=== PATIENT | male | born 1955 | race Caucasian/White ===

== ENCOUNTER 2018-01-13 14:07 | Emergency (ER) | payer MEDICAID ==
[~2018-01-13] VITALS: Ht 172.7 cm; Wt 102.1 kg
[~2018-01-13 14:07] MED LIST: AMOXICILLIN500 M2 PO; BENADRYL25 MG PO; CLARITIN10 MG PO; EPIPEN 2-PAK1 MG/ML MR; FLEXERIL10 MG PO; MEDROL DOSEPAK4 MG PO; NAPROSYN500 MG PO; NO DAILY MEDS; PREDNICOT20 MG PO; PREDNISONE20 MG PO; ZITHROMAX Z PA250 MG PO
== END 2018-01-13 16:07 | disposition home or self-care (01) ==
LOC: ED 14:07
DX: T78.1XXA Other adverse food reactions, not elsewhere classified, initial encounter (principal); X58.XXXA Exposure to other specified factors, initial encounter

== ENCOUNTER → 2018-01-26 | Outpatient (CLI) | payer MEDICAID | END | disposition home or self-care (01) | LOC: RESCLI 02:23 | DX: J44.9 Chronic obstructive pulmonary disease, unspecified (principal); H53.2 Diplopia; I10 Essential (primary) hypertension; R73.03 Prediabetes; K21.9 Gastro-esophageal reflux disease without esophagitis; T78.3XXD Angioneurotic edema, subsequent encounter; Z72.0 Tobacco use; Z71.6 Tobacco abuse counseling; G89.21 Chronic pain due to trauma ==

== ENCOUNTER → 2018-02-21 | Outpatient (CLI) | payer MEDICAID | END | disposition home or self-care (01) | LOC: RESCLI 02:59 | DX: I10 Essential (primary) hypertension (principal); J44.9 Chronic obstructive pulmonary disease, unspecified; R73.03 Prediabetes; T78.3XXD Angioneurotic edema, subsequent encounter; G89.21 Chronic pain due to trauma; Z72.0 Tobacco use ==

== ENCOUNTER 2018-03-31 10:25 | Emergency (ER) | payer OTHER ==
[~2018-03-31] VITALS: Ht 172.7 cm; Wt 113.4 kg
[2018-03-31] MEDS ORDERED: PREDNISONE10 MG PO (11:41)
== END 2018-03-31 11:56 | disposition home or self-care (01) ==
LOC: ED 10:25
DX: R22.0 Localized swelling, mass and lump, head (principal); T78.40XA Allergy, unspecified, initial encounter; J45.909 Unspecified asthma, uncomplicated; Y92.9 Unspecified place or not applicable

== ENCOUNTER → 2018-04-05 | Outpatient (CLI) | payer OTHER ==
[~2018-04-05] MED LIST changes: +PREDNISONE10 MG PO
== END | disposition home or self-care (01) ==
LOC: RESCLI 01:56
DX: I10 Essential (primary) hypertension (principal); H53.2 Diplopia; J44.9 Chronic obstructive pulmonary disease, unspecified; G89.21 Chronic pain due to trauma; R73.03 Prediabetes; K21.9 Gastro-esophageal reflux disease without esophagitis; E55.9 Vitamin D deficiency, unspecified; K43.9 Ventral hernia without obstruction or gangrene; Z71.6 Tobacco abuse counseling; Z72.0 Tobacco use

== ENCOUNTER → 2018-07-05 | Outpatient (CLI) | payer OTHER | END | disposition home or self-care (01) | LOC: RESCLI 03:42 | DX: I10 Essential (primary) hypertension (principal); K21.9 Gastro-esophageal reflux disease without esophagitis; J44.9 Chronic obstructive pulmonary disease, unspecified; H53.2 Diplopia; E55.9 Vitamin D deficiency, unspecified; K43.9 Ventral hernia without obstruction or gangrene; E66.01 Morbid (severe) obesity due to excess calories; G89.21 Chronic pain due to trauma; R73.03 Prediabetes; Z72.0 Tobacco use; Z71.6 Tobacco abuse counseling ==

== ENCOUNTER → 2018-07-07 | Outpatient (CLI) | payer OTHER | END | disposition home or self-care (01) | LOC: D 10:54 | DX: E66.01 Morbid (severe) obesity due to excess calories (principal); J44.9 Chronic obstructive pulmonary disease, unspecified; K21.9 Gastro-esophageal reflux disease without esophagitis; Z72.0 Tobacco use; Z71.6 Tobacco abuse counseling ==

== ENCOUNTER 2019-08-19 20:37 | Emergency (ER) | payer OTHER ==
[~2019-08-19] VITALS: Ht 172.7 cm; Wt 121.1 kg
[~2019-08-19 20:37] MED LIST changes: +ASPIRIN ADULT L81 M1 PO; +BACLOFEN5 MG PO; +HYDROCHLOROTH12.5 M3 PO; +NAPROXEN550 MG PO; +OMEPRAZOLE40 MG PO; +VITAMIN D31000 UNI1 PO
[2019-08-19] MEDS ORDERED: BANOPHEN50 MG PO (22:44)
[2019-08-19] MEDS ORDERED: PREDNISONE10 MG PO (22:44)
== END 2019-08-19 23:42 | disposition home or self-care (01) ==
LOC: ED 20:37
DX: T78.3XXA Angioneurotic edema, initial encounter (principal); R22.0 Localized swelling, mass and lump, head; Z79.899 Other long term (current) drug therapy; Z79.82 Long term (current) use of aspirin; Y92.89 Other specified places as the place of occurrence of the external cause

== ENCOUNTER 2020-07-31 13:29 | Emergency (ER) | payer OTHER ==
[~2020-07-31] VITALS: Ht 180.3 cm; Wt 127.0 kg
[~2020-07-31 13:29] MED LIST changes: +BANOPHEN50 MG PO
[2020-07-31] MEDS ORDERED: DOXYCYCLINE100 M3 PO (13:58)
[2020-07-31] MEDS ORDERED: PREDNISONE10 MG PO (13:58)
[2020-07-31] MEDS ORDERED: PROVENTIL HFA6.7 GM INH (13:58)
== END 2020-07-31 14:36 | disposition home or self-care (01) ==
LOC: ED 13:29
DX: J44.1 Chronic obstructive pulmonary disease with (acute) exacerbation (principal); Z79.899 Other long term (current) drug therapy; Z79.82 Long term (current) use of aspirin

== ENCOUNTER 2020-08-25 13:57 | Inpatient (IN) | payer OTHER ==
[~2020-08-25] VITALS: Ht 172.7 cm; Wt 119.5 kg
[~2020-08-25 13:57] MED LIST changes: +DOXYCYCLINE100 M3 PO; +PROVENTIL HFA6.7 GM INH
[2020-08-25 14:04] VITALS: BP 155/111
[2020-08-25 14:44] LABS: BASO % 0.4 % (0.0-1.0); EOS # 0.5 10*3/uL (0.0-0.4); LYMPH # 1.2 10*3/uL (1.3-4.4); LYMPH % 17.5 % (27.0-41.0); MEAN CELL VOLUME 86.8 fl (80.0-94.0); MEAN CORPUSCULAR HGB 28.4 pg (27.0-31.0); MEAN CORPUSCULAR HGB CONC 32.7 g/dl (33.0-37.0); MONO # 0.8 10*3/uL (0.1-1.0); MONO % 12.3 % (3.0-9.0); NEUT # 4.2 10*3/uL (2.3-7.9); NEUT % 62.5 % (47.0-73.0); PLATELET COUNT AUTOMATED 209 10*3/uL (130-400); RED BLOOD COUNT 5.07 10*6/uL (4.50-5.90); RED CELL DISTRI WIDTH 13.1 % (0-14.5); WHITE BLOOD COUNT 6.8 10*3/uL (4.8-10.8)
[2020-08-25 15:00] LABS: ALBUMIN 3.7 gm/dl (3.1-4.5); ALKALINE PHOSPHATASE 83 U/L (45-117); BUN 15 mg/dl (7-24); CHLORIDE 110 mmol/L (98-107); CREATININE 1.03 mg/dL (0.70-1.30); POTASSIUM 3.7 mmol/L (3.5-5.1); SGOT/AST 19 IU/L (3-35); SGPT/ALT 31 U/L (12-78); SODIUM 140 mmol/L (136-145); TOTAL PROTEIN 7.3 gm/dL (6.4-8.2)
[2020-08-25 15:02] LABS: TROPONIN I < 0.015 ng/ml (<0.045)
[2020-08-25 16:30] VITALS: BP 146/80
[2020-08-25 16:43] VITALS: BP 144/77
[2020-08-25] MEDS ORDERED: BUDESONIDE-FO10.2 GM INH ×2 (17:11→17:17)
[2020-08-25 20:00] VITALS: BP 145/77
[2020-08-26] VITALS: BP 131/61
[2020-08-26 05:51] LABS: ALBUMIN 3.7 gm/dl (3.1-4.5); POTASSIUM 3.5 mmol/L (3.5-5.1); TOTAL PROTEIN 7.7 gm/dL (6.4-8.2)
[2020-08-26 05:58] LABS: CREATININE 1.46 mg/dL (0.70-1.30); FREE T4 1.01 ng/dl (0.76-1.46); THYROID STIM HORMONE (HS) 0.519 uIU/ml (0.358-4.75)
[2020-08-26 06:03] LABS: HEMATOCRIT 45.9 % (42.0-52.0); LYMPH # 0.4 10*3/uL (1.3-4.4); LYMPH % 5.8 % (27.0-41.0); MEAN CELL VOLUME 87.4 fl (80.0-94.0); MEAN CORPUSCULAR HGB 28.2 pg (27.0-31.0); MEAN CORPUSCULAR HGB CONC 32.2 g/dl (33.0-37.0); MEAN PLATELET VOLUME 12.2 fl (9.6-12.3); MONO # 0.3 10*3/uL (0.1-1.0); MONO % 4.1 % (3.0-9.0); NEUT # 6.5 10*3/uL (2.3-7.9); NEUT % 89.8 % (47.0-73.0); PLATELET COUNT AUTOMATED 257 10*3/uL (130-400); RED BLOOD COUNT 5.25 10*6/uL (4.50-5.90); WHITE BLOOD COUNT 7.3 10*3/uL (4.8-10.8)
[2020-08-26 08:00] VITALS: BP 138/57
[2020-08-26 12:00] VITALS: BP 142/67
[2020-08-26 16:00] VITALS: BP 137/69
[2020-08-26 20:00] VITALS: BP 122/60
[2020-08-27] VITALS: BP 119/62
[2020-08-27 06:46] LABS: BASO % 0.1 % (0.0-1.0); EOS % 0.1 % (1.0-4.0); HEMATOCRIT 42.7 % (42.0-52.0); LYMPH # 1.4 10*3/uL (1.3-4.4); LYMPH % 9.3 % (27.0-41.0); MEAN CELL VOLUME 87.7 fl (80.0-94.0); MEAN CORPUSCULAR HGB 28.3 pg (27.0-31.0); MEAN CORPUSCULAR HGB CONC 32.3 g/dl (33.0-37.0); MEAN PLATELET VOLUME 11.7 fl (9.6-12.3); MONO % 6.8 % (3.0-9.0); NEUT # 12.2 10*3/uL (2.3-7.9); NEUT % 83.4 % (47.0-73.0); PLATELET COUNT AUTOMATED 268 10*3/uL (130-400); RED BLOOD COUNT 4.87 10*6/uL (4.50-5.90); RED CELL DISTRI WIDTH 13.4 % (0-14.5); WHITE BLOOD COUNT 14.6 10*3/uL (4.8-10.8)
[2020-08-27 07:09] LABS: ALBUMIN 3.6 gm/dl (3.1-4.5); BUN 15 mg/dl (7-24); CHLORIDE 110 mmol/L (98-107); CREATININE 1.11 mg/dL (0.70-1.30); POTASSIUM 3.8 mmol/L (3.5-5.1); SODIUM 140 mmol/L (136-145)
[2020-08-27 08:00] VITALS: BP 143/71
[2020-08-27 12:00] VITALS: BP 135/64
[2020-08-27 16:00] VITALS: BP 125/75
[2020-08-27 20:00] VITALS: BP 131/72
[2020-08-28] VITALS: BP 121/73
[2020-08-28 06:40] LABS: BASO % 0.1 % (0.0-1.0); EOS % 0.1 % (1.0-4.0); HEMATOCRIT 42.3 % (42.0-52.0); LYMPH # 1.7 10*3/uL (1.3-4.4); LYMPH % 12.5 % (27.0-41.0); MEAN CELL VOLUME 88.7 fl (80.0-94.0); MEAN CORPUSCULAR HGB 28.1 pg (27.0-31.0); MEAN CORPUSCULAR HGB CONC 31.7 g/dl (33.0-37.0); MEAN PLATELET VOLUME 11.3 fl (9.6-12.3); MONO # 1.1 10*3/uL (0.1-1.0); NEUT # 10.8 10*3/uL (2.3-7.9); NEUT % 78.8 % (47.0-73.0); PLATELET COUNT AUTOMATED 245 10*3/uL (130-400); RED BLOOD COUNT 4.77 10*6/uL (4.50-5.90); RED CELL DISTRI WIDTH 13.3 % (0-14.5); WHITE BLOOD COUNT 13.7 10*3/uL (4.8-10.8)
[2020-08-28 07:02] LABS: BUN 17 mg/dl (7-24); CHLORIDE 110 mmol/L (98-107); CREATININE 0.95 mg/dL (0.70-1.30); POTASSIUM 4.1 mmol/L (3.5-5.1); SODIUM 139 mmol/L (136-145)
[2020-08-28 08:00] VITALS: BP 137/76
[2020-08-28 16:00] VITALS: BP 151/49
[2020-08-28 20:02] VITALS: BP 122/85
[2020-08-29] VITALS: BP 144/84
[2020-08-29 06:35] LABS: BASO % 0.2 % (0.0-1.0); EOS % 0.1 % (1.0-4.0); LYMPH # 2.2 10*3/uL (1.3-4.4); LYMPH % 16.8 % (27.0-41.0); MEAN CELL VOLUME 87.6 fl (80.0-94.0); MEAN CORPUSCULAR HGB 28.1 pg (27.0-31.0); MEAN PLATELET VOLUME 11.4 fl (9.6-12.3); MONO % 7.9 % (3.0-9.0); NEUT # 9.6 10*3/uL (2.3-7.9); NEUT % 73.5 % (47.0-73.0); PLATELET COUNT AUTOMATED 284 10*3/uL (130-400); RED BLOOD COUNT 5.02 10*6/uL (4.50-5.90); RED CELL DISTRI WIDTH 13.5 % (0-14.5); WHITE BLOOD COUNT 13.1 10*3/uL (4.8-10.8)
[2020-08-29 06:48] LABS: BUN 20 mg/dl (7-24); CHLORIDE 109 mmol/L (98-107); CREATININE 1.01 mg/dL (0.70-1.30); POTASSIUM 3.9 mmol/L (3.5-5.1); SODIUM 141 mmol/L (136-145)
[2020-08-29 08:00] VITALS: BP 133/82
[2020-08-29] MEDS ORDERED: DOXYCYCLINE100 M3 PO (11:07)
[2020-08-29] MEDS ORDERED: MUCUS RELIEF600 MG PO (11:07)
[2020-08-29] MEDS ORDERED: PREDNISONE10 MG PO (11:07)
[2020-08-29 12:00] VITALS: BP 129/79
== END 2020-08-29 14:08 | disposition home or self-care (01) | DRG 140 ==
LOC: ED 13:57 → 4E 15:56 → EDHOLD 15:56 → 4E 16:16
PROVIDERS: Internal Medicine; Physician Assistant; ADMIT Emergency Medicine; ATTEND Emergency Medicine
DX: J44.1 Chronic obstructive pulmonary disease with (acute) exacerbation (principal); K21.9 Gastro-esophageal reflux disease without esophagitis; N17.0 Acute kidney failure with tubular necrosis; I10 Essential (primary) hypertension; D64.9 Anemia, unspecified; E11.65 Type 2 diabetes mellitus with hyperglycemia; D72.829 Elevated white blood cell count, unspecified; E87.8 Other disorders of electrolyte and fluid balance, not elsewhere classified; F17.220 Nicotine dependence, chewing tobacco, uncomplicated; E66.01 Morbid (severe) obesity due to excess calories; Z68.41 Body mass index [BMI] 40.0-44.9, adult; Z98.41 Cataract extraction status, right eye; Z82.49 Family history of ischemic heart disease and other diseases of the circulatory system; Z83.3 Family history of diabetes mellitus; Z71.6 Tobacco abuse counseling

== ENCOUNTER 2020-10-08 10:09 | Observation (INO) | payer OTHER ==
[~2020-10-08] VITALS: Ht 177.8 cm; Wt 120.7 kg
[~2020-10-08 10:09] MED LIST changes: +BUDESONIDE-FO10.2 GM INH; +MUCUS RELIEF600 MG PO
[2020-10-08 10:30] VITALS: BP 143/96
[2020-10-08 10:44] VITALS: BP 131/79
[2020-10-08 11:01] LABS: BASO % 0.5 % (0.0-1.0); EOS # 0.7 10*3/uL (0.0-0.4); EOS % 8.4 % (1.0-4.0); HEMATOCRIT 46.7 % (42.0-52.0); LYMPH # 1.8 10*3/uL (1.3-4.4); LYMPH % 21.3 % (27.0-41.0); MEAN CELL VOLUME 88.1 fl (80.0-94.0); MEAN CORPUSCULAR HGB 28.3 pg (27.0-31.0); MEAN CORPUSCULAR HGB CONC 32.1 g/dl (33.0-37.0); MEAN PLATELET VOLUME 11.5 fl (9.6-12.3); MONO # 0.9 10*3/uL (0.1-1.0); MONO % 10.8 % (3.0-9.0); NEUT # 4.8 10*3/uL (2.3-7.9); NEUT % 58.6 % (47.0-73.0); PLATELET COUNT AUTOMATED 270 10*3/uL (130-400); RED CELL DISTRI WIDTH 13.5 % (0-14.5); WHITE BLOOD COUNT 8.2 10*3/uL (4.8-10.8)
[2020-10-08 11:10] LABS: ACT PARTIAL THROMBO TIME 26.1 SECONDS (20.0-32.1)
[2020-10-08 11:16] LABS: ALBUMIN 3.9 gm/dl (3.1-4.5); ALKALINE PHOSPHATASE 88 U/L (45-117); BUN 12 mg/dl (7-24); CHLORIDE 108 mmol/L (98-107); LIPASE 66 U/L (73-393); POTASSIUM 3.8 mmol/L (3.5-5.1); SGOT/AST 31 IU/L (3-35); SGPT/ALT 35 U/L (12-78); SODIUM 142 mmol/L (136-145); TOTAL PROTEIN 7.5 gm/dL (6.4-8.2)
[2020-10-08 11:19] LABS: TROPONIN I < 0.015 ng/ml (<0.045)
[2020-10-08 14:30] VITALS: BP 116/81
[2020-10-08 15:33] VITALS: BP 145/82
--- NOTE | 2020-10-08 16:16 | NUR ---
Time: N A 65 year old MALE admitted to 4E under services of MONTEZ ELIZABETH DO. Pt. arrived via bed from ER. Chief complaint: SOB. LIZ COLLINS L
--- NOTE | 2020-10-08 19:00 | NUR ---
REPORT RECEIVED. PT WATCHING TV. NO COMPLAINTS CALL LIGHT IN REACH
[2020-10-08 20:00] VITALS: BP 141/90
--- NOTE | 2020-10-08 21:00 | NUR ---
IN TO SEE PT. MEDICATION GIVEN. NO COMPLAINTS
[2020-10-09] VITALS: BP 131/65
--- NOTE | 2020-10-09 01:52 | NUR ---
24 HR chart check completed.
--- NOTE | 2020-10-09 04:00 | NUR ---
PT AWAKE AT THIS TIME. PLAYING ON PHONE. NO COMPLAINTS
--- NOTE | 2020-10-09 04:10 | NUR ---
DR. BOYKIN NOTIFIED OF PT COUGHING AND REQUEST FOR SOMETHING TO HELP. STATED HE WOULD PUT ORDER IN
--- NOTE | 2020-10-09 04:44 | NUR ---
TESSELON ANTHONY GIVEN FOR COUGH. WILL MONITOR
--- NOTE | 2020-10-09 05:40 | NUR ---
PT STATES THAT MEDICATION HELPED COUGH
[2020-10-09 07:01] LABS: BASO % 0.1 % (0.0-1.0); EOS % 0.1 % (1.0-4.0); HEMATOCRIT 46.7 % (42.0-52.0); LYMPH # 1.1 10*3/uL (1.3-4.4); LYMPH % 7.8 % (27.0-41.0); MEAN CELL VOLUME 87.6 fl (80.0-94.0); MEAN CORPUSCULAR HGB CONC 31.9 g/dl (33.0-37.0); MEAN PLATELET VOLUME 11.5 fl (9.6-12.3); MONO # 0.5 10*3/uL (0.1-1.0); MONO % 3.5 % (3.0-9.0); NEUT # 12.2 10*3/uL (2.3-7.9); NEUT % 87.9 % (47.0-73.0); PLATELET COUNT AUTOMATED 280 10*3/uL (130-400); RED BLOOD COUNT 5.33 10*6/uL (4.50-5.90); RED CELL DISTRI WIDTH 13.4 % (0-14.5); WHITE BLOOD COUNT 13.8 10*3/uL (4.8-10.8)
[2020-10-09 07:32] LABS: ALBUMIN 3.7 gm/dl (3.1-4.5); BUN 16 mg/dl (7-24); CHLORIDE 110 mmol/L (98-107); CREATININE 1.22 mg/dL (0.70-1.30); POTASSIUM 4.1 mmol/L (3.5-5.1); SGOT/AST 21 IU/L (3-35); SGPT/ALT 29 U/L (12-78); SODIUM 140 mmol/L (136-145)
[2020-10-09 07:34] LABS: ALKALINE PHOSPHATASE 90 U/L (45-117); TOTAL PROTEIN 7.4 gm/dL (6.4-8.2)
[2020-10-09 08:00] VITALS: BP 122/66
--- NOTE | 2020-10-09 09:00 | NUR ---
Technical Services Coordinator in to talk to patient. Patient states lives at home with his nephew. There are 0 steps in the home. There are 3 outside steps. Physician: Dr. Carmen Reynolds Pharmacy: [facility] Home health services: none Patient's level of ADLs: MINIMAL ASSIST Patient has working utilities: yes DME: cane, nebulizer Follow-up physician's appointment after d/c: will be made by the hospitalist nurse director upon discharge Does patient want to access PORTAL?: no Discharge plan discussed with patient. He lives at home with his nephew. He states he will be moving into a trailer in November with his girlfriend. He is independent in his ADLs and uses a cane when ambulating if his right knee is acting up. Discussed home health care services and he declines. CM will continue to follow for any discharge planning needs. He would like to see how to get his Playstation 4 connected to the TV. When medically stable he will be discharged to home. He states a friend will provide transportation upon discharge. NAYELI MACIAS
[2020-10-09 12:00] VITALS: BP 139/69
[2020-10-09 16:00] VITALS: BP 114/51
--- NOTE | 2020-10-09 19:00 | NUR ---
REPORT RECEIVED. PT WATCHING TV AT THIS TIME, NO COMPLAINTS.
--- NOTE | 2020-10-09 19:09 | NUR ---
PT REFUSED DA AT THIS TIME.
[2020-10-09 20:00] VITALS: BP 130/77
--- NOTE | 2020-10-09 21:00 | NUR ---
PT WATCHING TV/
--- NOTE | 2020-10-09 21:13 | NUR ---
TESSALON PERLE GIVEN PER ORDER FOR COUGH. WILL MONITOR
--- NOTE | 2020-10-09 22:13 | NUR ---
PER PT, MEDICATION HELPED COUGH
[2020-10-10] VITALS: BP 130/65
--- NOTE | 2020-10-10 01:00 | NUR ---
PT ASLEEP AT THIS TIME
--- NOTE | 2020-10-10 04:20 | NUR ---
SLEEPING, CALL LIGHT IN REACH
--- NOTE | 2020-10-10 06:41 | NUR ---
AWAKE AT THIS TIME. NO COMPLAINTS. CALL LIGHT IN REACH
[2020-10-10 08:00] VITALS: BP 145/72
--- NOTE | 2020-10-10 09:00 | NUR ---
CM in to see patient. No new needs or request at this time. Discussed home health care services and he declines. CM will continue to follow for any discharge planning needs. When medically stable he will be discharged to home.
--- NOTE | 2020-10-10 10:22 | NUR ---
Respiratory was up and walked pt for home o2 assessment. States that pt does not qualify for home o2.
--- NOTE | 2020-10-10 10:25 | NUR ---
PT WAS ASSESSED FOR HOME OXYGEN. PT DID NOT QUALIFY. PT AT REST SPO2 96% RA, HR 90, B/P 145/72, RR 18 PT AMBULATED PROXIMETY OF 4TH FLOOR SPO2 94% RA PT AT REST SPO2 94% RA, HR 106, B/P 145/83, RR 20 RN NOTIFIED AND NOTIFIED
--- NOTE | 2020-10-10 10:50 | NUR ---
Notified Dr. Jones that pt does not qualify for home o2.
[2020-10-10] MEDS ORDERED: PREDNISONE10 MG PO (11:48)
[2020-10-10] MEDS ORDERED: LEVOFLOXACIN750 M2 PO (11:48)
[2020-10-10 12:00] VITALS: BP 151/87
--- NOTE | 2020-10-10 12:09 | NUR ---
Discharge instructions reviewed with patient. Patient receptive and verbalizes understanding. Follow-up care arranged. Written instructions given to patient. Pt has ordered lunch and states he will arrange for ride and leave after he eats.
--- NOTE | 2020-10-10 13:30 | NUR ---
Pt left via ambulatory with belongings. Decline assistance or wheelchair ride out.
== END 2020-10-10 13:39 | disposition home or self-care (01) ==
LOC: ED 10:09 → EDHOLD 13:00 → 4E 15:31
PROVIDERS: Emergency Medicine; Student in an Organized Health Care Education/Training Program; ADMIT Internal Medicine; ATTEND Internal Medicine
DX: J44.1 Chronic obstructive pulmonary disease with (acute) exacerbation (principal); E87.8 Other disorders of electrolyte and fluid balance, not elsewhere classified; D72.19 Other eosinophilia; R79.82 Elevated C-reactive protein (CRP); E66.9 Obesity, unspecified; Z68.39 Body mass index [BMI] 39.0-39.9, adult; R73.03 Prediabetes; K21.9 Gastro-esophageal reflux disease without esophagitis; I10 Essential (primary) hypertension; D64.9 Anemia, unspecified; F17.220 Nicotine dependence, chewing tobacco, uncomplicated; F32.9 Major depressive disorder, single episode, unspecified

== ENCOUNTER 2020-11-06 12:09 | Emergency (ER) | payer OTHER ==
[~2020-11-06] VITALS: Ht 172.7 cm; Wt 124.7 kg
[~2020-11-06 12:09] MED LIST changes: +LEVOFLOXACIN750 M2 PO
[2020-11-06 12:46] LABS: BASO % 0.4 % (0.0-1.0); EOS # 0.7 10*3/uL (0.0-0.4); EOS % 9.3 % (1.0-4.0); HEMATOCRIT 43.3 % (42.0-52.0); LYMPH # 1.4 10*3/uL (1.3-4.4); LYMPH % 19.3 % (27.0-41.0); MEAN CELL VOLUME 87.5 fl (80.0-94.0); MEAN CORPUSCULAR HGB 28.1 pg (27.0-31.0); MEAN CORPUSCULAR HGB CONC 32.1 g/dl (33.0-37.0); MEAN PLATELET VOLUME 10.7 fl (9.6-12.3); MONO # 0.6 10*3/uL (0.1-1.0); MONO % 8.1 % (3.0-9.0); NEUT # 4.5 10*3/uL (2.3-7.9); NEUT % 62.6 % (47.0-73.0); PLATELET COUNT AUTOMATED 247 10*3/uL (130-400); RED BLOOD COUNT 4.95 10*6/uL (4.50-5.90); RED CELL DISTRI WIDTH 13.2 % (0-14.5); WHITE BLOOD COUNT 7.2 10*3/uL (4.8-10.8)
[2020-11-06 12:56] LABS: ACT PARTIAL THROMBO TIME 25.9 SECONDS (20.0-32.1); INTERNATIONAL NORM RATIO 0.9 (2.0-3.5)
[2020-11-06 13:06] LABS: ALBUMIN 3.5 gm/dl (3.1-4.5); ALKALINE PHOSPHATASE 113 U/L (45-117); BUN 12 mg/dl (7-24); CHLORIDE 111 mmol/L (98-107); CREATININE 1.13 mg/dL (0.70-1.30); LDH 230 U/L (87-241); POTASSIUM 3.9 mmol/L (3.5-5.1); SGOT/AST 22 IU/L (3-35); SGPT/ALT 32 U/L (12-78); SODIUM 140 mmol/L (136-145); TOTAL PROTEIN 7.2 gm/dL (6.4-8.2)
[2020-11-06 13:07] LABS: TROPONIN I < 0.015 ng/ml (<0.045)
[2020-11-06] MEDS ORDERED: SYMB80 INH (14:25)
[2020-11-06] MEDS ORDERED: DOXYCYCLINE100 M3 PO (14:25)
[2020-11-06] MEDS ORDERED: PROVENTIL HFA6.7 GM INH (14:25)
[2020-11-06] MEDS ORDERED: PREDNISONE10 MG PO (14:25)
== END 2020-11-06 18:04 ==
LOC: ED 12:09
PROVIDERS: Family Medicine
DX: J44.1 Chronic obstructive pulmonary disease with (acute) exacerbation (principal); Z79.899 Other long term (current) drug therapy

== ENCOUNTER 2021-01-27 11:25 | Inpatient (IN) | payer OTHER ==
[2021-01-27] VITALS (8 sets, daily range): BP systolic 104–134; BP diastolic 59–87
[~2021-01-27] VITALS: Ht 177.8 cm; Wt 118.8 kg
[~2021-01-27 11:25] MED LIST changes: +SYMB80 INH
[2021-01-27 12:16] LABS: BASO % 0.5 % (0.0-1.0); EOS # 0.6 10*3/uL (0.0-0.4); EOS % 6.6 % (1.0-4.0); HEMATOCRIT 45.2 % (42.0-52.0); LYMPH # 1.7 10*3/uL (1.3-4.4); LYMPH % 19.7 % (27.0-41.0); MEAN CORPUSCULAR HGB 28.5 pg (27.0-31.0); MEAN CORPUSCULAR HGB CONC 32.1 g/dl (33.0-37.0); MEAN PLATELET VOLUME 11.3 fl (9.6-12.3); NEUT # 5.5 10*3/uL (2.3-7.9); NEUT % 61.6 % (47.0-73.0); PLATELET COUNT AUTOMATED 262 10*3/uL (130-400); RED BLOOD COUNT 5.08 10*6/uL (4.50-5.90); RED CELL DISTRI WIDTH 12.8 % (0-14.5); WHITE BLOOD COUNT 8.8 10*3/uL (4.8-10.8)
[2021-01-27 12:27] LABS: ACT PARTIAL THROMBO TIME 27.6 SECONDS (20.0-32.1)
[2021-01-27 12:34] LABS: ALBUMIN 3.3 gm/dl (3.1-4.5); ALKALINE PHOSPHATASE 92 U/L (45-117); BUN 12 mg/dl (7-24); CHLORIDE 110 mmol/L (98-107); CREATININE 1.05 mg/dL (0.70-1.30); LIPASE 70 U/L (73-393); POTASSIUM 3.9 mmol/L (3.5-5.1); SGOT/AST 15 IU/L (3-35); SGPT/ALT 24 U/L (12-78); SODIUM 140 mmol/L (136-145); TOTAL PROTEIN 7.1 gm/dL (6.4-8.2)
[2021-01-27 12:35] LABS: TROPONIN I < 0.015 ng/ml (<0.045)
[2021-01-28] VITALS: BP 107/64
[2021-01-28 06:10] LABS: BASO % 0.1 % (0.0-1.0); EOS % 0.1 % (1.0-4.0); HEMATOCRIT 47.1 % (42.0-52.0); LYMPH # 1.1 10*3/uL (1.3-4.4); LYMPH % 7.9 % (27.0-41.0); MEAN CELL VOLUME 90.1 fl (80.0-94.0); MEAN CORPUSCULAR HGB 28.7 pg (27.0-31.0); MEAN CORPUSCULAR HGB CONC 31.8 g/dl (33.0-37.0); MEAN PLATELET VOLUME 11.9 fl (9.6-12.3); MONO # 0.5 10*3/uL (0.1-1.0); MONO % 3.5 % (3.0-9.0); NEUT # 12.3 10*3/uL (2.3-7.9); NEUT % 87.8 % (47.0-73.0); PLATELET COUNT AUTOMATED 266 10*3/uL (130-400); RED BLOOD COUNT 5.23 10*6/uL (4.50-5.90); RED CELL DISTRI WIDTH 12.7 % (0-14.5); WHITE BLOOD COUNT 14.1 10*3/uL (4.8-10.8)
[2021-01-28 06:26] LABS: ALBUMIN 3.2 gm/dl (3.1-4.5); BUN 17 mg/dl (7-24); CHLORIDE 108 mmol/L (98-107); CREATININE 1.22 mg/dL (0.70-1.30); POTASSIUM 4.6 mmol/L (3.5-5.1); SGOT/AST 22 IU/L (3-35); SGPT/ALT 25 U/L (12-78); SODIUM 137 mmol/L (136-145); TOTAL PROTEIN 7.4 gm/dL (6.4-8.2)
[2021-01-28 06:44] LABS: ALKALINE PHOSPHATASE 90 U/L (45-117)
[2021-01-28 08:00] VITALS: BP 102/80
[2021-01-28 12:00] VITALS: BP 99/50
[2021-01-28 16:00] VITALS: BP 105/50
[2021-01-28 20:00] VITALS: BP 105/55
[2021-01-29] VITALS: BP 93/54
[2021-01-29 06:20] LABS: BASO % 0.1 % (0.0-1.0); HEMATOCRIT 47.1 % (42.0-52.0); LYMPH # 1.6 10*3/uL (1.3-4.4); LYMPH % 7.4 % (27.0-41.0); MEAN CELL VOLUME 89.5 fl (80.0-94.0); MEAN CORPUSCULAR HGB 28.5 pg (27.0-31.0); MEAN CORPUSCULAR HGB CONC 31.8 g/dl (33.0-37.0); MEAN PLATELET VOLUME 11.5 fl (9.6-12.3); MONO # 1.2 10*3/uL (0.1-1.0); MONO % 5.5 % (3.0-9.0); NEUT # 18.8 10*3/uL (2.3-7.9); NEUT % 86.3 % (47.0-73.0); PLATELET COUNT AUTOMATED 283 10*3/uL (130-400); RED BLOOD COUNT 5.26 10*6/uL (4.50-5.90); RED CELL DISTRI WIDTH 12.8 % (0-14.5); WHITE BLOOD COUNT 21.8 10*3/uL (4.8-10.8)
[2021-01-29 06:23] LABS: BUN 21 mg/dl (7-24); CHLORIDE 109 mmol/L (98-107); POTASSIUM 4.4 mmol/L (3.5-5.1); SODIUM 141 mmol/L (136-145)
[2021-01-29 08:00] VITALS: BP 109/59
[2021-01-29] MEDS ORDERED: AVPAK AZITHROM250 M1 PO (11:44)
[2021-01-29] MEDS ORDERED: MUCUS RELIEF600 MG PO (11:44)
[2021-01-29] MEDS ORDERED: VITAMIN D350 MC2 PO (11:44)
[2021-01-29] MEDS ORDERED: PREDNISONE10 MG PO (11:44)
== END 2021-01-29 14:08 | disposition home or self-care (01) | DRG 194 ==
LOC: ED 11:25 → EDHOLD 14:22 → 4E 14:22
PROVIDERS: Emergency Medicine; Internal Medicine; ADMIT Family Medicine; ATTEND Family Medicine
DX: I11.0 Hypertensive heart disease with heart failure (principal); J44.1 Chronic obstructive pulmonary disease with (acute) exacerbation; J45.909 Unspecified asthma, uncomplicated; R73.03 Prediabetes; K21.9 Gastro-esophageal reflux disease without esophagitis; F17.220 Nicotine dependence, chewing tobacco, uncomplicated; E87.8 Other disorders of electrolyte and fluid balance, not elsewhere classified; E66.9 Obesity, unspecified; I50.9 Heart failure, unspecified; Z98.52 Vasectomy status; Z98.41 Cataract extraction status, right eye; Z82.49 Family history of ischemic heart disease and other diseases of the circulatory system; Z83.3 Family history of diabetes mellitus; Z68.38 Body mass index [BMI] 38.0-38.9, adult; Z71.6 Tobacco abuse counseling; I50.31 Acute diastolic (congestive) heart failure

== ENCOUNTER → 2021-05-15 | Outpatient (CLI) | payer OTHER ==
[~2021-05-15] MED LIST changes: +AVPAK AZITHROM250 M1 PO; +VITAMIN D350 MC2 PO
== END | disposition home or self-care (01) ==
LOC: RAD 12:32
PROVIDERS: ATTEND Family Medicine
DX: M25.561 Pain in right knee (principal)

== ENCOUNTER 2022-05-08 14:32 | Inpatient (IN) | payer OTHER ==
[~2022-05-08] VITALS: Ht 180 cm; Wt 122.0 kg
[2022-05-08 14:32] VITALS: BP 139/89
[2022-05-08 15:03] LABS: BASO % 0.5 % (0.0-1.0); EOS # 0.3 10*3/uL (0.0-0.4); EOS % 5.1 % (1.0-4.0); HEMATOCRIT 43.7 % (42.0-52.0); LYMPH # 0.9 10*3/uL (1.3-4.4); LYMPH % 14.8 % (27.0-41.0); MEAN CELL VOLUME 86.5 fl (80.0-94.0); MEAN CORPUSCULAR HGB 28.5 pg (27.0-31.0); MEAN PLATELET VOLUME 10.5 fl (9.6-12.3); MONO % 16.1 % (3.0-9.0); NEUT # 3.9 10*3/uL (2.3-7.9); NEUT % 62.9 % (47.0-73.0); PLATELET COUNT AUTOMATED 251 10*3/uL (130-400); RED BLOOD COUNT 5.05 10*6/uL (4.50-5.90); RED CELL DISTRI WIDTH 13.5 % (0-14.5); WHITE BLOOD COUNT 6.2 10*3/uL (4.8-10.8)
[2022-05-08 15:18] LABS: ACT PARTIAL THROMBO TIME 27.9 SECONDS (20.0-32.1)
[2022-05-08 15:20] LABS: ALKALINE PHOSPHATASE 104 U/L (45-117); BUN 11 mg/dl (7-24); CHLORIDE 109 mmol/L (98-107); CREATININE 1.01 mg/dL (0.70-1.30); POTASSIUM 3.6 mmol/L (3.5-5.1); SGOT/AST 23 IU/L (3-35); SGPT/ALT 18 U/L (12-78); SODIUM 143 mmol/L (136-145); TOTAL PROTEIN 7.3 gm/dL (6.4-8.2)
[2022-05-08 18:00] VITALS: BP 149/88
[2022-05-08 18:35] VITALS: BP 156/84
[2022-05-08 18:45] VITALS: BP 156/84
[2022-05-08 20:00] VITALS: BP 151/82
[2022-05-09] VITALS: BP 154/76
[2022-05-09 05:58] LABS: BUN 15 mg/dl (7-24); CHLORIDE 107 mmol/L (98-107); CHOLESTEROL 194 mg/dL (<200); CREATININE 1.07 mg/dL (0.70-1.30); POTASSIUM 4.2 mmol/L (3.5-5.1); SGOT/AST 21 IU/L (3-35); SGPT/ALT 20 U/L (12-78); SODIUM 139 mmol/L (136-145); TOTAL PROTEIN 7.1 gm/dL (6.4-8.2); TRIGLYCERIDES 62 mg/dl (<150)
[2022-05-09 06:03] LABS: ALKALINE PHOSPHATASE 101 U/L (45-117); FREE T4 0.98 ng/dl (0.76-1.46); LDL CHOLESTEROL 133 mg/dL (9-159); THYROID STIM HORMONE (HS) 0.484 uIU/ml (0.358-4.75)
[2022-05-09 06:15] LABS: EOS % 0.2 % (1.0-4.0); HEMATOCRIT 44.4 % (42.0-52.0); LYMPH # 0.6 10*3/uL (1.3-4.4); MEAN CELL VOLUME 87.6 fl (80.0-94.0); MEAN CORPUSCULAR HGB 28.8 pg (27.0-31.0); MEAN CORPUSCULAR HGB CONC 32.9 g/dl (33.0-37.0); MEAN PLATELET VOLUME 11.1 fl (9.6-12.3); MONO # 0.2 10*3/uL (0.1-1.0); MONO % 3.4 % (3.0-9.0); NEUT # 4.4 10*3/uL (2.3-7.9); NEUT % 84.6 % (47.0-73.0); PLATELET COUNT AUTOMATED 244 10*3/uL (130-400); RED BLOOD COUNT 5.07 10*6/uL (4.50-5.90); RED CELL DISTRI WIDTH 13.5 % (0-14.5); WHITE BLOOD COUNT 5.3 10*3/uL (4.8-10.8)
[2022-05-09 08:00] VITALS: BP 136/50
[2022-05-09 12:00] VITALS: BP 113/92
[2022-05-09 16:00] VITALS: BP 106/70
[2022-05-09 20:00] VITALS: BP 149/77
[2022-05-10] VITALS: BP 124/51
[2022-05-10 08:00] VITALS: BP 117/55
[2022-05-10 12:00] VITALS: BP 124/78
[2022-05-10 16:00] VITALS: BP 138/66
[2022-05-10 20:00] VITALS: BP 114/73
[2022-05-11] VITALS: BP 115/67; BP 154/72
[2022-05-11 05:34] LABS: BUN 22 mg/dl (7-24); CHLORIDE 108 mmol/L (98-107); CREATININE 1.03 mg/dL (0.70-1.30); POTASSIUM 4.4 mmol/L (3.5-5.1); SODIUM 138 mmol/L (136-145)
[2022-05-11 06:36] LABS: BASO % 0.1 % (0.0-1.0); EOS % 0.1 % (1.0-4.0); HEMATOCRIT 43.3 % (42.0-52.0); LYMPH # 1.2 10*3/uL (1.3-4.4); LYMPH % 8.4 % (27.0-41.0); MEAN CORPUSCULAR HGB 29.6 pg (27.0-31.0); MEAN CORPUSCULAR HGB CONC 32.6 g/dl (33.0-37.0); MEAN PLATELET VOLUME 11.7 fl (9.6-12.3); MONO # 0.5 10*3/uL (0.1-1.0); MONO % 3.5 % (3.0-9.0); NEUT # 12.4 10*3/uL (2.3-7.9); NEUT % 86.4 % (47.0-73.0); PLATELET COUNT AUTOMATED 240 10*3/uL (130-400); RED BLOOD COUNT 4.77 10*6/uL (4.50-5.90); WHITE BLOOD COUNT 14.4 10*3/uL (4.8-10.8)
[2022-05-11 07:02] LABS: MEAN CELL VOLUME 90.8 fl (80.0-94.0)
[2022-05-11 08:00] VITALS: BP 123/69
[2022-05-11] MEDS ORDERED: LEVOFLOXACIN500 MG PO (10:57)
[2022-05-11] MEDS ORDERED: Ipratropium Brom3 ML INH (10:57)
[2022-05-11] MEDS ORDERED: PREDNISONE10 MG PO (10:57)
[2022-05-11 12:00] VITALS: BP 140/77
== END 2022-05-11 16:13 | disposition home or self-care (01) | DRG 140 ==
LOC: ED 14:32 → 4E 17:06 → EDHOLD 17:06 → 4E 17:55
PROVIDERS: Emergency Medicine; Family Medicine; Student in an Organized Health Care Education/Training Program; ADMIT Student in an Organized Health Care Education/Training Program; ATTEND Student in an Organized Health Care Education/Training Program
DX: J43.9 Emphysema, unspecified (principal); K21.9 Gastro-esophageal reflux disease without esophagitis; F17.210 Nicotine dependence, cigarettes, uncomplicated; I50.9 Heart failure, unspecified; I11.0 Hypertensive heart disease with heart failure; R73.9 Hyperglycemia, unspecified; E83.39 Other disorders of phosphorus metabolism

== ENCOUNTER 2022-06-19 17:14 | Emergency (ER) | payer OTHER ==
[~2022-06-19 17:14] MED LIST changes: +Ipratropium Brom3 ML INH; +LEVOFLOXACIN500 MG PO
[2022-06-19] MEDS ORDERED: VIBRA-TAB100 MG PO (17:24)
[2022-06-19] MEDS ORDERED: PREDNISONE10 MG PO (17:24)
[2022-06-19 17:41] LABS: BASO % 0.4 % (0.0-1.0); EOS # 0.1 10*3/uL (0.0-0.4); EOS % 1.7 % (1.0-4.0); HEMATOCRIT 44.8 % (42.0-52.0); LYMPH # 1.7 10*3/uL (1.3-4.4); LYMPH % 23.4 % (27.0-41.0); MEAN CELL VOLUME 87.5 fl (80.0-94.0); MEAN CORPUSCULAR HGB 29.5 pg (27.0-31.0); MEAN CORPUSCULAR HGB CONC 33.7 g/dl (33.0-37.0); MEAN PLATELET VOLUME 10.1 fl (9.6-12.3); MONO # 0.9 10*3/uL (0.1-1.0); MONO % 12.5 % (3.0-9.0); NEUT # 4.6 10*3/uL (2.3-7.9); NEUT % 61.5 % (47.0-73.0); PLATELET COUNT AUTOMATED 306 10*3/uL (130-400); RED BLOOD COUNT 5.12 10*6/uL (4.50-5.90); RED CELL DISTRI WIDTH 13.6 % (0-14.5); WHITE BLOOD COUNT 7.4 10*3/uL (4.8-10.8)
[2022-06-19 18:00] LABS: ALKALINE PHOSPHATASE 96 U/L (45-117); BUN 14 mg/dl (7-24); CHLORIDE 110 mmol/L (98-107); SGOT/AST 24 IU/L (3-35); SGPT/ALT 19 U/L (12-78); SODIUM 141 mmol/L (136-145); TOTAL PROTEIN 7.6 gm/dL (6.4-8.2)
== END 2022-06-19 18:45 | disposition home or self-care (01) ==
LOC: ED 17:14
PROVIDERS: Emergency Medicine
DX: J44.1 Chronic obstructive pulmonary disease with (acute) exacerbation (principal); F12.90 Cannabis use, unspecified, uncomplicated; Z87.891 Personal history of nicotine dependence; Z98.890 Other specified postprocedural states; Z79.2 Long term (current) use of antibiotics

== ENCOUNTER 2022-08-21 14:57 | Emergency (ER) | payer OTHER ==
[~2022-08-21] VITALS: Ht 180.3 cm; Wt 122.0 kg
[~2022-08-21 14:57] MED LIST changes: +VIBRA-TAB100 MG PO
[2022-08-21 16:35] LABS: BASO % 0.5 % (0.0-1.0); EOS # 0.5 10*3/uL (0.0-0.4); HEMATOCRIT 43.9 % (42.0-52.0); LYMPH # 1.6 10*3/uL (1.3-4.4); MEAN CELL VOLUME 87.5 fl (80.0-94.0); MEAN CORPUSCULAR HGB 29.3 pg (27.0-31.0); MEAN CORPUSCULAR HGB CONC 33.5 g/dl (33.0-37.0); MEAN PLATELET VOLUME 10.3 fl (9.6-12.3); MONO # 0.8 10*3/uL (0.1-1.0); MONO % 9.6 % (3.0-9.0); NEUT # 5.2 10*3/uL (2.3-7.9); NEUT % 63.7 % (47.0-73.0); PLATELET COUNT AUTOMATED 291 10*3/uL (130-400); RED BLOOD COUNT 5.02 10*6/uL (4.50-5.90); RED CELL DISTRI WIDTH 12.9 % (0-14.5); WHITE BLOOD COUNT 8.2 10*3/uL (4.8-10.8)
[2022-08-21 16:59] LABS: ALKALINE PHOSPHATASE 92 U/L (45-117); BUN 10 mg/dl (7-24); CHLORIDE 111 mmol/L (98-107); POTASSIUM 3.5 mmol/L (3.5-5.1); SGOT/AST 18 IU/L (3-35); SGPT/ALT 16 U/L (12-78); SODIUM 143 mmol/L (136-145); TOTAL PROTEIN 7.2 gm/dL (6.4-8.2)
[2022-08-21] MEDS ORDERED: PREDNISONE20 M1 PO (19:04)
== END 2022-08-21 19:03 | disposition home or self-care (01) ==
LOC: ED 14:57
PROVIDERS: Nurse Practitioner Family
DX: G89.29 Other chronic pain (principal); M25.561 Pain in right knee; J44.1 Chronic obstructive pulmonary disease with (acute) exacerbation; Z79.899 Other long term (current) drug therapy; Z98.890 Other specified postprocedural states; Z87.891 Personal history of nicotine dependence

== ENCOUNTER 2022-09-13 18:27 | Emergency (ER) | payer OTHER ==
[~2022-09-13] VITALS: Ht 177.8 cm; Wt 108.9 kg
[~2022-09-13 18:27] MED LIST changes: +PREDNISONE20 M1 PO
[2022-09-13 22:22] LABS: BASO # 0.1 10*3/uL (0.0-0.1); BASO % 0.6 % (0.0-1.0); EOS # 0.6 10*3/uL (0.0-0.4); EOS % 6.2 % (1.0-4.0); HEMATOCRIT 44.1 % (42.0-52.0); LYMPH # 2.1 10*3/uL (1.3-4.4); LYMPH % 21.1 % (27.0-41.0); MEAN CELL VOLUME 89.5 fl (80.0-94.0); MEAN CORPUSCULAR HGB 29.2 pg (27.0-31.0); MEAN CORPUSCULAR HGB CONC 32.7 g/dl (33.0-37.0); MEAN PLATELET VOLUME 10.6 fl (9.6-12.3); MONO % 9.6 % (3.0-9.0); NEUT # 6.2 10*3/uL (2.3-7.9); NEUT % 62.2 % (47.0-73.0); PLATELET COUNT AUTOMATED 259 10*3/uL (130-400); RED BLOOD COUNT 4.93 10*6/uL (4.50-5.90); WHITE BLOOD COUNT 9.9 10*3/uL (4.8-10.8)
[2022-09-13 22:39] LABS: ALKALINE PHOSPHATASE 75 U/L (45-117); BUN 13 mg/dl (7-24); CHLORIDE 111 mmol/L (98-107); CREATININE 1.07 mg/dL (0.70-1.30); POTASSIUM 3.7 mmol/L (3.5-5.1); SGOT/AST 18 IU/L (3-35); SGPT/ALT 21 U/L (12-78); SODIUM 140 mmol/L (136-145)
[2022-09-13] MEDS ORDERED: PREDNISONE10 M1 PO (23:52)
[2022-09-13] MEDS ORDERED: VIBRAMYCIN100 MG PO (23:52)
== END 2022-09-14 00:15 | disposition home or self-care (01) ==
LOC: ED 18:27
PROVIDERS: Emergency Medicine
DX: J44.1 Chronic obstructive pulmonary disease with (acute) exacerbation (principal); K21.9 Gastro-esophageal reflux disease without esophagitis; I50.9 Heart failure, unspecified; E66.9 Obesity, unspecified; I11.0 Hypertensive heart disease with heart failure; Z98.890 Other specified postprocedural states; Z87.891 Personal history of nicotine dependence

== ENCOUNTER 2023-06-16 12:47 | Emergency (ER) | payer MEDICAID ==
[~2023-06-16] VITALS: Wt 113.4 kg
[~2023-06-16 12:47] MED LIST changes: +PREDNISONE10 M1 PO; +VIBRAMYCIN100 MG PO
== END 2023-06-16 19:36 | disposition left against medical advice (07) ==
LOC: ED 12:47
DX: T21.22XA Burn of second degree of abdominal wall, initial encounter (principal); T31.0 Burns involving less than 10% of body surface; J44.9 Chronic obstructive pulmonary disease, unspecified; I10 Essential (primary) hypertension; Z53.21 Procedure and treatment not carried out due to patient leaving prior to being seen by health care provider; X08.8XXA Exposure to other specified smoke, fire and flames, initial encounter; Y93.89 Activity, other specified; Y92.89 Other specified places as the place of occurrence of the external cause; Y99.8 Other external cause status

== ENCOUNTER 2024-02-20 14:32 | Emergency (ER) | payer MEDICAID ==
[~2024-02-20] VITALS: Ht 180.3 cm; Wt 136.1 kg
[~2024-02-20 14:32] MED LIST changes: +DOXYCYCLINE HY100 M3 PO; +SPIRIVA RESPIMAT4 GM INH; +SYMB160 INH
[2024-02-20] MEDS ORDERED: CEPHALEXIN 500 MG CAP PO ONE (14:55)
[2024-02-20] MEDS ORDERED: Acetaminophen/Oxycodone 5 MG/325 MG TABLET PO ONE (14:55)
[2024-02-20] MEDS ORDERED: Bacitracin Zinc/Neomycin/Pol 0.9 GM PACKET T ONE (14:55)
[2024-02-20] MEDS ORDERED: TRAMADOL HCL50 MG PO (14:59)
[2024-02-20] MEDS ORDERED: CEPHALEXIN500 M1 PO (14:59)
== END 2024-02-20 15:12 | disposition home or self-care (01) ==
LOC: ED 14:32
DX: S61.213A Laceration without foreign body of left middle finger without damage to nail, initial encounter (principal); J44.9 Chronic obstructive pulmonary disease, unspecified; I10 Essential (primary) hypertension; Z98.890 Other specified postprocedural states; Z87.891 Personal history of nicotine dependence; F12.90 Cannabis use, unspecified, uncomplicated; W26.0XXA Contact with knife, initial encounter; Y93.89 Activity, other specified; Y92.89 Other specified places as the place of occurrence of the external cause; Y99.8 Other external cause status

== ENCOUNTER → 2024-02-29 | Outpatient (CLI) | payer MEDICAID ==
[~2024-02-29] MED LIST changes: +CEPHALEXIN500 M1 PO; +TRAMADOL HCL50 MG PO
== END | disposition home or self-care (01) ==
LOC: WOUNDCARE 02:10
PROVIDERS: ATTEND Nurse Practitioner Family
DX: T21.02XA Burn of unspecified degree of abdominal wall, initial encounter (principal); T31.0 Burns involving less than 10% of body surface; L98.499 Non-pressure chronic ulcer of skin of other sites with unspecified severity; R06.00 Dyspnea, unspecified; E66.1 Drug-induced obesity; J44.1 Chronic obstructive pulmonary disease with (acute) exacerbation; R73.03 Prediabetes; I50.9 Heart failure, unspecified; E66.01 Morbid (severe) obesity due to excess calories; F17.220 Nicotine dependence, chewing tobacco, uncomplicated; F12.90 Cannabis use, unspecified, uncomplicated; Z98.49 Cataract extraction status, unspecified eye; Z98.52 Vasectomy status; Z79.899 Other long term (current) drug therapy; X08.8XXA Exposure to other specified smoke, fire and flames, initial encounter; Y93.89 Activity, other specified; Y92.89 Other specified places as the place of occurrence of the external cause; Y99.8 Other external cause status

== ENCOUNTER 2024-08-11 16:14 | Emergency (ER) | payer MEDICAID ==
[~2024-08-11] VITALS: Ht 175.2 cm; Wt 104.3 kg
[2024-08-11] MEDS ORDERED: predniSONE 20 MG TAB PO ONE (16:45)
[2024-08-11] MEDS ORDERED: PREDNISONE20 M1 PO (16:45)
[2024-08-11] MEDS ORDERED: diphenhydrAMINE hydrochloride 25 MG CAP PO ONE (16:45)
[2024-08-11] MEDS ORDERED: BENADRYL ALLERG25 M5 PO (16:45)
== END 2024-08-11 16:49 | disposition home or self-care (01) ==
LOC: ED 16:14
DX: T63.441A Toxic effect of venom of bees, accidental (unintentional), initial encounter (principal); J44.9 Chronic obstructive pulmonary disease, unspecified; I10 Essential (primary) hypertension; F12.90 Cannabis use, unspecified, uncomplicated; Z98.890 Other specified postprocedural states; Z87.891 Personal history of nicotine dependence; Y92.89 Other specified places as the place of occurrence of the external cause

== ENCOUNTER → 2025-07-25 | Outpatient (CLI) | payer OTHER ==
[~2025-07-25] MED LIST changes: +BENADRYL ALLERG25 M5 PO; +CIPRO500 MG PO; +COLACE100 MG PO; +HYDROCODONE-AC1 EAC1 PO; +METRONIDAZOLE500 M1 PO; +VITAMIN D350 MCG PO
== END | disposition home or self-care (01) ==
LOC: WOUNDCARE 03:00
PROVIDERS: ATTEND Nurse Practitioner Family
DX: T81.31XA Disruption of external operation (surgical) wound, not elsewhere classified, initial encounter (principal); I11.0 Hypertensive heart disease with heart failure; I50.9 Heart failure, unspecified; K81.0 Acute cholecystitis; J45.909 Unspecified asthma, uncomplicated; K21.9 Gastro-esophageal reflux disease without esophagitis; E66.01 Morbid (severe) obesity due to excess calories; F17.220 Nicotine dependence, chewing tobacco, uncomplicated; F12.90 Cannabis use, unspecified, uncomplicated; Z98.49 Cataract extraction status, unspecified eye; Z98.890 Other specified postprocedural states; Y83.8 Other surgical procedures as the cause of abnormal reaction of the patient, or of later complication, without mention of misadventure at the time of the procedure; Y92.239 Unspecified place in hospital as the place of occurrence of the external cause

== ENCOUNTER 2025-08-03 22:49 | Inpatient (IN) | payer OTHER ==
[~2025-08-03] VITALS: Ht 180.3 cm; Wt 136.4 kg
[2025-08-03 22:54] VITALS: BP 156/88
[2025-08-03 23:49] LABS: BASO # 0.1 10*3/uL (0.0-0.1); BASO % 0.7 % (0.0-1.0); EOS # 0.2 10*3/uL (0.0-0.4); EOS % 2.9 % (1.0-4.0); MEAN CELL VOLUME 89.2 fl (80.0-94.0); MEAN CORPUSCULAR HGB 28.5 pg (27.0-31.0); MEAN PLATELET VOLUME 10.6 fl (9.6-12.3); MONO # 1.0 10*3/uL (0.1-1.0); MONO % 12.2 % (3.0-9.0); NEUT # 4.7 10*3/uL (2.3-7.9); NEUT % 57.8 % (47.0-73.0); NUCLEATED RED BLOOD CELL 0.0 % (0.0-0.0); NUCLEATED RED BLOOD CELL 0.0 10*3/uL (0.0-0.0); PLATELET COUNT AUTOMATED 248 10*3/uL (130-400); RED CELL DISTRI WIDTH 13.5 % (0-14.5)
[2025-08-04] MEDS ORDERED: Albuterol Sulf/Ipratropium 3 ML VIAL NEB ONE (00:05)
[2025-08-04 00:11] LABS: BUN 13 mg/dl (9-23)
[2025-08-04] MEDS ORDERED: AZITHROMYCIN 250 ML IV ONE (02:25)
[2025-08-04] MEDS ORDERED: Ondansetron Hydrochloride 4 MG/2 ML VIAL IV PRN (03:05)
[2025-08-04 03:07] VITALS: BP 150/79
[2025-08-04] MEDS ORDERED: Albuterol Sulf/Ipratropium 3 ML VIAL NEB PRN (03:10)
[2025-08-04 06:07] LABS: BASO # 0.1 10*3/uL (0.0-0.1); BASO % 0.5 % (0.0-1.0); EOS # 0.1 10*3/uL (0.0-0.4); EOS % 1.2 % (1.0-4.0); MEAN CELL VOLUME 89.2 fl (80.0-94.0); MEAN CORPUSCULAR HGB 28.2 pg (27.0-31.0); MEAN PLATELET VOLUME 11.3 fl (9.6-12.3); MONO # 0.4 10*3/uL (0.1-1.0); MONO % 3.8 % (3.0-9.0); NEUT # 7.8 10*3/uL (2.3-7.9); NEUT % 78.3 % (47.0-73.0); NUCLEATED RED BLOOD CELL 0.0 % (0.0-0.0); NUCLEATED RED BLOOD CELL 0.0 10*3/uL (0.0-0.0); PLATELET COUNT AUTOMATED 298 10*3/uL (130-400); RED CELL DISTRI WIDTH 13.6 % (0-14.5)
[2025-08-04 06:20] LABS: BUN 14 mg/dl (9-23); SGPT/ALT 18 U/L (5-49)
[2025-08-04 08:00] VITALS: BP 152/82
[2025-08-04] MEDS ORDERED: ACETAMINOPHEN 325 MG TAB PO PRN (10:10)
[2025-08-04] MEDS ORDERED: BISACODYL 10 MG SUPP R PRN (10:10)
[2025-08-04] MEDS ORDERED: DEXTROSE 50% 25 GM/50 ML VIAL IV PRN (10:10)
[2025-08-04] MEDS ORDERED: BISACODYL 5 MG TAB PO PRN (10:10)
[2025-08-04] MEDS ORDERED: Albuterol Sulf/Ipratropium 3 ML VIAL NEB SCH (10:23)
[2025-08-04] MEDS ORDERED: INSULIN LISPRO 1 UNIT/0.01 ML SQ SCH (11:30)
[2025-08-04 12:00] VITALS: BP 144/74
[2025-08-04 16:00] VITALS: BP 146/72
[2025-08-04 20:00] VITALS: BP 151/81
[2025-08-04] MEDS ORDERED: AZITHROMYCIN 250 MG TAB PO SCH (22:00)
[2025-08-05] VITALS: BP 134/64
[2025-08-05 06:34] LABS: MEAN CELL VOLUME 90.0 fl (80.0-94.0); MEAN CORPUSCULAR HGB 28.8 pg (27.0-31.0); MEAN PLATELET VOLUME 11.3 fl (9.6-12.3); NUCLEATED RED BLOOD CELL 0.0 % (0.0-0.0); NUCLEATED RED BLOOD CELL 0.0 10*3/uL (0.0-0.0); PLATELET COUNT AUTOMATED 266 10*3/uL (130-400); RED CELL DISTRI WIDTH 13.9 % (0-14.5)
[2025-08-05 06:46] LABS: MANUAL DIFF REFLEX YES
[2025-08-05 07:24] LABS: BUN 20 mg/dl (9-23); FREE T4 0.97 ng/dl (0.89-1.76); LDL CHOLESTEROL 126 mg/dL (9-159); PLATELET SUFFICIENCY NORMAL (NORMAL); SGPT/ALT 13 U/L (5-49)
[2025-08-05 07:38] LABS: VITAMIN D, 25-HYDROXY 25.4 ng/mL (30-100)
[2025-08-05 08:00] VITALS: BP 139/91
[2025-08-05 12:00] VITALS: BP 134/71
[2025-08-05] MEDS ORDERED: IOHEXOL 9 MG/ML (IODINE) ORAL SOLUTION PO ONE (12:15)
[2025-08-05] MEDS ORDERED: IOHEXOL 300 MG/ML 100 ML VIAL IV ONE (14:00)
[2025-08-05 16:00] VITALS: BP 131/52
[2025-08-05 20:00] VITALS: BP 132/65
[2025-08-05] MEDS ORDERED: GUAIFENESIN 600 MG TAB ER PO SCH (22:00)
[2025-08-06] VITALS: BP 131/67
[2025-08-06 07:21] LABS: BASO # 0.0 10*3/uL (0.0-0.1); BASO % 0.2 % (0.0-1.0); EOS # 0.0 10*3/uL (0.0-0.4); EOS % 0.0 % (1.0-4.0); MEAN CELL VOLUME 89.7 fl (80.0-94.0); MEAN CORPUSCULAR HGB 28.6 pg (27.0-31.0); MEAN PLATELET VOLUME 10.8 fl (9.6-12.3); MONO # 1.2 10*3/uL (0.1-1.0); MONO % 5.5 % (3.0-9.0); NEUT # 18.7 10*3/uL (2.3-7.9); NEUT % 85.4 % (47.0-73.0); NUCLEATED RED BLOOD CELL 0.0 % (0.0-0.0); NUCLEATED RED BLOOD CELL 0.0 10*3/uL (0.0-0.0); PLATELET COUNT AUTOMATED 258 10*3/uL (130-400); RED CELL DISTRI WIDTH 14.0 % (0-14.5)
[2025-08-06 08:00] VITALS: BP 141/90
[2025-08-06] MEDS ORDERED: PERFLUTREN PROTEIN-A MICROSPHR 3 ML VIAL IV ONE (09:55)
[2025-08-06 12:00] VITALS: BP 150/92
[2025-08-06] MEDS ORDERED: Albuterol Sulf/Ipratropium 3 ML VIAL NEB SCH (12:09)
[2025-08-06 16:00] VITALS: BP 143/77
[2025-08-06 20:00] VITALS: BP 136/65
[2025-08-07] VITALS: BP 135/60
[2025-08-07 06:37] LABS: MEAN CELL VOLUME 90.1 fl (80.0-94.0); MEAN CORPUSCULAR HGB 29.1 pg (27.0-31.0); MEAN PLATELET VOLUME 11.4 fl (9.6-12.3); NUCLEATED RED BLOOD CELL 0.0 % (0.0-0.0); NUCLEATED RED BLOOD CELL 0.0 10*3/uL (0.0-0.0); PLATELET COUNT AUTOMATED 257 10*3/uL (130-400); RED CELL DISTRI WIDTH 14.4 % (0-14.5)
[2025-08-07 06:40] LABS: MANUAL DIFF REFLEX YES
[2025-08-07 06:44] LABS: BUN 21 mg/dl (9-23)
[2025-08-07 07:12] LABS: PLATELET SUFFICIENCY NORMAL (NORMAL)
[2025-08-07 08:00] VITALS: BP 126/79
[2025-08-07 11:59] VITALS: BP 137/89
[2025-08-07 16:00] VITALS: BP 154/82
[2025-08-07] MEDS ORDERED: Cefepime Hydrochloride 2 GM,IV 1 EA in SODIUM CHLORIDE 0.9% 50 ML IV SCH (16:00)
[2025-08-07 21:00] VITALS: BP 143/68
[2025-08-08] VITALS: BP 134/75
[2025-08-08 07:03] LABS: MEAN CELL VOLUME 90.3 fl (80.0-94.0); MEAN CORPUSCULAR HGB 28.7 pg (27.0-31.0); MEAN PLATELET VOLUME 10.8 fl (9.6-12.3); NUCLEATED RED BLOOD CELL 0.0 % (0.0-0.0); NUCLEATED RED BLOOD CELL 0.0 10*3/uL (0.0-0.0); PLATELET COUNT AUTOMATED 262 10*3/uL (130-400); RED CELL DISTRI WIDTH 14.1 % (0-14.5)
[2025-08-08 07:27] LABS: BUN 27 mg/dl (9-23)
[2025-08-08 08:00] VITALS: BP 132/58
[2025-08-08 09:59] LABS: MANUAL DIFF REFLEX YES
[2025-08-08 10:03] LABS: PLATELET SUFFICIENCY NORMAL (NORMAL)
[2025-08-08 12:00] VITALS: BP 99/80
[2025-08-08 16:00] VITALS: BP 145/70
[2025-08-08 22:00] VITALS: BP 148/73
[2025-08-09] VITALS: BP 128/76
[2025-08-09 08:00] VITALS: BP 135/80
[2025-08-09 12:00] VITALS: BP 168/77
[2025-08-09 15:46] VITALS: BP 134/67
[2025-08-09 20:00] VITALS: BP 131/56
[2025-08-10] VITALS (9 sets, daily range): BP systolic 122–153; BP diastolic 60–91
[2025-08-10 07:09] LABS: MEAN CELL VOLUME 89.6 fl (80.0-94.0); MEAN CORPUSCULAR HGB 28.8 pg (27.0-31.0); MEAN PLATELET VOLUME 11.3 fl (9.6-12.3); NUCLEATED RED BLOOD CELL 0.0 10*3/uL (0.0-0.0); NUCLEATED RED BLOOD CELL 0.1 % (0.0-0.0); PLATELET COUNT AUTOMATED 253 10*3/uL (130-400); RED CELL DISTRI WIDTH 14.2 % (0-14.5)
[2025-08-10 07:11] LABS: MANUAL DIFF REFLEX YES
[2025-08-10 07:45] LABS: BUN 23 mg/dl (9-23)
[2025-08-10 09:04] LABS: PLATELET SUFFICIENCY NORMAL (NORMAL)
[2025-08-10] MEDS ORDERED: Albuterol Sulfate 2.5 MG/0.5 ML VIAL NEB ONE ×2 (09:30→09:55)
[2025-08-10] MEDS ORDERED: Lidocaine Hydrochloride 4% 5 ML AMP NEB ONE (09:30)
[2025-08-10] MEDS ORDERED: Lactated Ringer's Solution 500 ML IV ONE (09:49)
[2025-08-10] MEDS ORDERED: Lidocaine Hydrochloride 4% 5 ML AMP ONE (09:55)
[2025-08-10] MEDS ORDERED: Albuterol Sulf/Ipratropium 3 ML VIAL NEB ONE ×2 (10:30→11:19)
[2025-08-10] MEDS ORDERED: PROPOFOL 200 MG/20 ML VIAL IV ONE (13:37)
[2025-08-10] MEDS ORDERED: Lidocaine Hydrochloride 5 ML VIAL IV ONE (13:37)
[2025-08-11] VITALS: BP 128/53
[2025-08-11 08:00] VITALS: BP 148/79
[2025-08-11 12:00] VITALS: BP 134/60
[2025-08-11 13:07] LABS: ACID FAST SPEC PROCESSING Concentration (.)
[2025-08-11] MEDS ORDERED: Ipratropium Brom3 ML INH (13:07)
[2025-08-11] MEDS ORDERED: SYMB160 INH (13:07)
[2025-08-11] MEDS ORDERED: SPIRIVA RESPIMAT4 GM INH (13:07)
[2025-08-11] MEDS ORDERED: VENT7GM INH (13:07)
== END 2025-08-11 14:30 | disposition home or self-care (01) | DRG 145 ==
LOC: ED 22:49 → 5E 08-04 02:34 → EDHOLD 08-04 02:34 → 5E 08-04 02:49
PROVIDERS: Internal Medicine; Internal Medicine Critical Care Medicine; Registered Nurse; Student in an Organized Health Care Education/Training Program; ADMIT Student in an Organized Health Care Education/Training Program; ATTEND Student in an Organized Health Care Education/Training Program
PROC: 0BC98ZZ Extirpation of Matter from Lingula Bronchus, Via Natural or Artificial Opening Endoscopic (ICD-10-PCS; principal; 2025-08-10)
PROC: 0BC48ZZ Extirpation of Matter from Right Upper Lobe Bronchus, Via Natural or Artificial Opening Endoscopic (ICD-10-PCS; 2025-08-10)
PROC: 0BC88ZZ Extirpation of Matter from Left Upper Lobe Bronchus, Via Natural or Artificial Opening Endoscopic (ICD-10-PCS; 2025-08-10)
PROC: 0BC58ZZ Extirpation of Matter from Right Middle Lobe Bronchus, Via Natural or Artificial Opening Endoscopic (ICD-10-PCS; 2025-08-10)
PROC: 0BC38ZZ Extirpation of Matter from Right Main Bronchus, Via Natural or Artificial Opening Endoscopic (ICD-10-PCS; 2025-08-10)
PROC: 0BC78ZZ Extirpation of Matter from Left Main Bronchus, Via Natural or Artificial Opening Endoscopic (ICD-10-PCS; 2025-08-10)
PROC: 0BC68ZZ Extirpation of Matter from Right Lower Lobe Bronchus, Via Natural or Artificial Opening Endoscopic (ICD-10-PCS; 2025-08-10)
PROC: 0BCB8ZZ Extirpation of Matter from Left Lower Lobe Bronchus, Via Natural or Artificial Opening Endoscopic (ICD-10-PCS; 2025-08-10)
DX: J20.9 Acute bronchitis, unspecified (principal); J15.69 Pneumonia due to other Gram-negative bacteria; J44.1 Chronic obstructive pulmonary disease with (acute) exacerbation; J44.0 Chronic obstructive pulmonary disease with (acute) lower respiratory infection; J45.901 Unspecified asthma with (acute) exacerbation; E66.01 Morbid (severe) obesity due to excess calories; K76.0 Fatty (change of) liver, not elsewhere classified; Z68.41 Body mass index [BMI] 40.0-44.9, adult; F15.90 Other stimulant use, unspecified, uncomplicated; K21.9 Gastro-esophageal reflux disease without esophagitis; I11.0 Hypertensive heart disease with heart failure; I50.22 Chronic systolic (congestive) heart failure; E11.65 Type 2 diabetes mellitus with hyperglycemia; D72.829 Elevated white blood cell count, unspecified; G47.33 Obstructive sleep apnea (adult) (pediatric); F17.220 Nicotine dependence, chewing tobacco, uncomplicated; Z90.49 Acquired absence of other specified parts of digestive tract; Z98.41 Cataract extraction status, right eye; Z98.52 Vasectomy status; Z79.899 Other long term (current) drug therapy; Z79.01 Long term (current) use of anticoagulants; Z79.2 Long term (current) use of antibiotics; Z82.49 Family history of ischemic heart disease and other diseases of the circulatory system; Z83.3 Family history of diabetes mellitus

== ENCOUNTER 2025-09-19 10:59 | Emergency (ER) | payer OTHER ==
[~2025-09-19] VITALS: Ht 177.8 cm; Wt 158.8 kg
[~2025-09-19 10:59] MED LIST changes: +VENT7GM INH
[2025-09-19] MEDS ORDERED: IOHEXOL 300 MG/ML 100 ML VIAL IV ONE (11:25)
[2025-09-19] MEDS ORDERED: Acetaminophen/Hydrocodone 5 MG/325 MG TABLET PO ONE (11:25)
[2025-09-19] MEDS ORDERED: SODIUM CHLORIDE 0.9% 1,000 ML IV ONE (11:25)
[2025-09-19] MEDS ORDERED: NAPROXEN 250 MG TAB PO ONE (11:25)
[2025-09-19 11:35] LABS: BASO # 0.0 10*3/uL (0.0-0.1); BASO % 0.3 % (0.0-1.0); EOS # 0.1 10*3/uL (0.0-0.4); EOS % 1.2 % (1.0-4.0); MEAN CELL VOLUME 88.2 fl (80.0-94.0); MEAN CORPUSCULAR HGB 28.4 pg (27.0-31.0); MEAN PLATELET VOLUME 10.6 fl (9.6-12.3); MONO # 1.0 10*3/uL (0.1-1.0); MONO % 10.7 % (3.0-9.0); NEUT # 6.4 10*3/uL (2.3-7.9); NEUT % 68.1 % (47.0-73.0); NUCLEATED RED BLOOD CELL 0.0 % (0.0-0.0); NUCLEATED RED BLOOD CELL 0.0 10*3/uL (0.0-0.0); PLATELET COUNT AUTOMATED 245 10*3/uL (130-400); RED CELL DISTRI WIDTH 13.2 % (0-14.5)
[2025-09-19 11:54] LABS: BUN 16 mg/dl (9-23)
[2025-09-19] MEDS ORDERED: CLEOCIN HCL150 MG PO (13:41)
[2025-09-19] MEDS ORDERED: PREDNISONE20 M1 PO (13:43)
[2025-09-19] MEDS ORDERED: HYDROCODONE-AC1 EAC1 PO (13:43)
== END 2025-09-19 13:48 | disposition home or self-care (01) ==
LOC: ED 10:59
PROVIDERS: Nurse Practitioner Family
DX: S93.402A Sprain of unspecified ligament of left ankle, initial encounter (principal); K11.20 Sialoadenitis, unspecified; Z90.49 Acquired absence of other specified parts of digestive tract; Z79.899 Other long term (current) drug therapy; Z87.891 Personal history of nicotine dependence; W01.0XXA Fall on same level from slipping, tripping and stumbling without subsequent striking against object, initial encounter; Y93.89 Activity, other specified; Y92.89 Other specified places as the place of occurrence of the external cause; Y99.8 Other external cause status

== ENCOUNTER 2025-09-29 12:13 | Inpatient (IN) | payer OTHER ==
[~2025-09-29] VITALS: Ht 180.3 cm; Wt 129.8 kg
[~2025-09-29 12:13] MED LIST changes: +CLEOCIN HCL150 MG PO
[2025-09-29 12:39] VITALS: BP 127/78
[2025-09-29 12:41] LABS: BASO # 0.0 10*3/uL (0.0-0.1); BASO % 0.4 % (0.0-1.0); EOS # 0.2 10*3/uL (0.0-0.4); EOS % 2.0 % (1.0-4.0); MEAN CELL VOLUME 87.7 fl (80.0-94.0); MEAN CORPUSCULAR HGB 29.2 pg (27.0-31.0); MEAN PLATELET VOLUME 10.7 fl (9.6-12.3); MONO # 0.9 10*3/uL (0.1-1.0); MONO % 11.0 % (3.0-9.0); NEUT # 5.4 10*3/uL (2.3-7.9); NEUT % 64.2 % (47.0-73.0); NUCLEATED RED BLOOD CELL 0.0 % (0.0-0.0); NUCLEATED RED BLOOD CELL 0.0 10*3/uL (0.0-0.0); PLATELET COUNT AUTOMATED 257 10*3/uL (130-400); RED CELL DISTRI WIDTH 12.9 % (0-14.5)
[2025-09-29] MEDS ORDERED: Albuterol Sulf/Ipratropium 3 ML VIAL NEB ONE (12:45)
[2025-09-29 13:00] LABS: BUN 16 mg/dl (9-23)
[2025-09-29] MEDS ORDERED: SODIUM CHLORIDE 0.9% 1,000 ML IV ONE (13:50)
[2025-09-29] MEDS ORDERED: Acetaminophen/Hydrocodone 5 MG/325 MG TABLET PO PRN (14:00)
[2025-09-29] MEDS ORDERED: ACETAMINOPHEN 325 MG TAB PO PRN (14:00)
[2025-09-29] MEDS ORDERED: ACETAMINOPHEN 650 MG SUPP R PRN (14:00)
[2025-09-29] MEDS ORDERED: Ondansetron Hydrochloride 4 MG/2 ML VIAL IV PRN (14:00)
[2025-09-29] MEDS ORDERED: BISACODYL 10 MG SUPP R PRN (14:00)
[2025-09-29] MEDS ORDERED: BISACODYL 5 MG TAB PO PRN (14:00)
[2025-09-29] MEDS ORDERED: IOHEXOL 300 MG/ML 100 ML VIAL IV ONE (14:10)
[2025-09-29] MEDS ORDERED: Albuterol Sulf/Ipratropium 3 ML VIAL NEB SCH (14:10)
[2025-09-29] MEDS ORDERED: IOHEXOL 300 MG/ML 100 ML VIAL ONE (14:34)
[2025-09-29] MEDS ORDERED: BUDESONIDE 0.5 MG AMP NEB SCH (15:00)
[2025-09-29 15:45] VITALS: BP 136/68
[2025-09-29 16:22] VITALS: BP 140/86
[2025-09-29] MEDS ORDERED: Ampicillin Sodium/Sulbactam 3 GM in SODIUM CHLORIDE 0.9% 100 ML IV SCH (18:00)
[2025-09-29 20:00] VITALS: BP 130/60
[2025-09-29] MEDS ORDERED: GUAIFENESIN 600 MG TAB ER PO SCH (22:00)
[2025-09-29] MEDS ORDERED: Budesonide/Formoterol Fumarate 160/4.5 inhaler INH SCH (22:00)
[2025-09-30] VITALS: BP 110/40
[2025-09-30 06:07] LABS: BUN 15 mg/dl (9-23); SGPT/ALT 19 U/L (5-49)
[2025-09-30 06:19] LABS: BASO # 0.0 10*3/uL (0.0-0.1); BASO % 0.4 % (0.0-1.0); EOS # 0.3 10*3/uL (0.0-0.4); EOS % 3.5 % (1.0-4.0); MEAN CELL VOLUME 90.0 fl (80.0-94.0); MEAN CORPUSCULAR HGB 29.4 pg (27.0-31.0); MEAN PLATELET VOLUME 11.5 fl (9.6-12.3); MONO # 0.8 10*3/uL (0.1-1.0); MONO % 11.6 % (3.0-9.0); NEUT # 4.5 10*3/uL (2.3-7.9); NEUT % 62.8 % (47.0-73.0); NUCLEATED RED BLOOD CELL 0.0 % (0.0-0.0); NUCLEATED RED BLOOD CELL 0.0 10*3/uL (0.0-0.0); PLATELET COUNT AUTOMATED 220 10*3/uL (130-400); RED CELL DISTRI WIDTH 13.3 % (0-14.5)
[2025-09-30 08:00] VITALS: BP 101/72
[2025-09-30 12:00] VITALS: BP 132/70
== END 2025-09-30 14:05 | disposition short-term general hospital (02) | DRG 115 ==
LOC: ED 12:13 → EDHOLD 13:56 → 5E 14:44
PROVIDERS: Nurse Practitioner Family; ADMIT Internal Medicine; ATTEND Internal Medicine
PROC: 05H933Z Insertion of Infusion Device into Right Brachial Vein, Percutaneous Approach (ICD-10-PCS; principal; 2025-09-30)
PROC: B54MZZA Ultrasonography of Right Upper Extremity Veins, Guidance (ICD-10-PCS; 2025-09-30)
DX: K11.20 Sialoadenitis, unspecified (principal); J15.69 Pneumonia due to other Gram-negative bacteria; J44.1 Chronic obstructive pulmonary disease with (acute) exacerbation; J44.0 Chronic obstructive pulmonary disease with (acute) lower respiratory infection; J43.9 Emphysema, unspecified; R73.09 Other abnormal glucose; K21.9 Gastro-esophageal reflux disease without esophagitis; D64.9 Anemia, unspecified; I50.32 Chronic diastolic (congestive) heart failure; I11.0 Hypertensive heart disease with heart failure; R73.03 Prediabetes; R73.9 Hyperglycemia, unspecified; E66.01 Morbid (severe) obesity due to excess calories; Z96.1 Presence of intraocular lens; Z98.49 Cataract extraction status, unspecified eye; Z90.49 Acquired absence of other specified parts of digestive tract; Z98.52 Vasectomy status; Z83.3 Family history of diabetes mellitus; Z82.49 Family history of ischemic heart disease and other diseases of the circulatory system; Z87.891 Personal history of nicotine dependence; Z79.899 Other long term (current) drug therapy; Z20.822 Contact with and (suspected) exposure to COVID-19; Z68.39 Body mass index [BMI] 39.0-39.9, adult